=== PATIENT | female | born 1970 | race Caucasian/White ===

== ENCOUNTER → 2017-05-28 | Outpatient (CLI) | payer OTHER ==
[~2017-05-28] MED LIST: ALPR0.25 PO; BIRTH CONTOL; FURO20TA4 PO; HYDR-700 PO; LOW OGESTREL PO; METO-351 PO; NF-ESOM40C PO; NORG1TAB79 PO; POTA20TA15 PO; TORS20TA2 PO; TRAM50TA2 PO; bcp PO
--- NOTE | 2017-05-28 20:40 | Diagnostic Imaging Report ---
Transabdominal and transvaginal pelvic ultrasound. INDICATION: Frequent cycles. FINDINGS: The uterus is 7.3 x 4.7 x 4.3 cm. The endometrial stripe is 0.9 cm in thickness. The myometrium is fairly homogeneous with no focal mass. The right ovary is 2.5 x 1.7 x 1.7 cm. The left ovary is 1.7 x 2 x 1.4 cm. Arterial and venous waveforms over both ovaries are demonstrated. No focal mass or fluid collection seen. IMPRESSION: Unremarkable exam. Dictated by: Dictated on workstation # [id number]
--- NOTE | 2017-05-29 10:07 | Diagnostic Imaging Report ---
Bilateral screening mammogram 2D views with tomosynthesis. The current study was also evaluated with a Computer Aided Detection (CAD) system. INDICATION: Screening. No current complaints stated on the questionnaire. COMPARISON: 11/21/2014. FINDINGS: The breasts are composed of scattered fibroglandular densities. Occasional benign-appearing calcifications are seen. Allowing for technique and positional differences, no suspicious change is seen. IMPRESSION: No significant change. ACR BI-RADS Category 2: Benign findings. Result letter will be mailed to the patient. Note: At least 10% of breast cancer is not imaged by mammography. Dictated by: Dictated on workstation # [id number]
== END ==
LOC: RAD 10:49
PROVIDERS: ATTEND Nurse Practitioner
DX: Z12.31 Encounter for screening mammogram for malignant neoplasm of breast (principal); N92.0 Excessive and frequent menstruation with regular cycle
CPT/HCPCS: 76830; 76856; 77067

== ENCOUNTER → 2018-07-29 | Outpatient (CLI) | payer BC, OTHER ==
--- NOTE | 2018-07-29 21:26 | Diagnostic Imaging Report ---
INDICATION: Routine screening. Comparison is made with prior mammogram from 05/28/2017 and 11/21/2014. 2-D and 3-D bilateral screening mammography was performed with CAD. The current study was also evaluated with a Computer Aided Detection (CAD) system. FINDINGS: Scattered fibroglandular densities are identified bilaterally. There are benign calcifications in both breasts. No dominant mass or malignant-appearing microcalcifications are seen. The axillae are unremarkable. IMPRESSION: No mammographic features suspicious for malignancy are identified. ACR BI-RADS Category 2: Benign findings. Result letter will be mailed to the patient. Note: At least 10% of breast cancer is not imaged by mammography. Dictated by: Dictated on workstation # [id number]
== END ==
LOC: RAD 07:26
PROVIDERS: ATTEND Nurse Practitioner
DX: Z12.31 Encounter for screening mammogram for malignant neoplasm of breast (principal)
CPT/HCPCS: 77067

== ENCOUNTER → 2019-05-11 | Outpatient (CLI) | payer BC ==
[~2019-05-11] MED LIST changes: -TRAM50TA2 PO; +TRM50T PO
--- NOTE | 2019-05-11 14:28 | Diagnostic Imaging Report ---
INDICATION: Evaluate for splenomegaly. Spleen measures 11.9 x 3.7 x 4.7 cm. Spleen shows homogeneous echotexture. No mass is seen. IMPRESSION: Normal sized spleen. Dictated by: Dictated on workstation # [id number]
== END ==
LOC: RAD 13:54
PROVIDERS: ATTEND Nurse Practitioner Family
DX: R16.1 Splenomegaly, not elsewhere classified (principal)
CPT/HCPCS: 76705

== ENCOUNTER → 2019-10-04 | Outpatient (CLI) | payer BC | END | disposition home or self-care (01) | LOC: PREOP 05:36 | PROVIDERS: ATTEND Surgery | DX: Z01.818 Encounter for other preprocedural examination (principal) ==

== ENCOUNTER → 2019-11-04 | Outpatient (CLI) | payer BC ==
[~2019-11-04] VITALS: Ht 157 cm; Wt 114.0 kg
[~2019-11-04] MED LIST changes: +ALPR0.5T7 PO; +ASCO10006 PO; +BUTA1CAP41 PO; +CITA40TA11 PO; +CYAN-23 PO; +FLEC50TA PO; +L.AC1CAP6 PO; +LEVO5TAB12 PO; +METO50TA15 PO; +MV-M1TAB20 PO; +OMEP40CA27 PO; +SUMA100T2 PO
== END | disposition home or self-care (01) ==
LOC: PREOP 09:37
PROVIDERS: ATTEND Surgery
DX: Z01.818 Encounter for other preprocedural examination (principal)

== ENCOUNTER 2019-11-08 07:25 | Day surgery (SDC) | payer BC ==
[2019-11-08] VITALS (9 sets, daily range): BP systolic 94–123; BP diastolic 52–75
[~2019-11-08] VITALS: Ht 157 cm; Wt 114.0 kg
--- OUTSIDE RECORDS SUMMARY | 2019-11-08 07:31 | XMS REPORT ---
Author Author [facility] Organization [facility] Address [address] [address] Care Team Providers Care Production Operator Name Role Phone DEMIAN PARKER Unavailable VIRAJ RICHARD, CONOR Eagle Unavailable Unavailable TORIBIO DO, REYNA K Unavailable Unavailable VANBECELAERE, PAZ M CERTIFIED ORTHOPTIST Unavailable Unavailable MARIN LEW, WOOD Eagle Unavailable Unavailable CARYL ALFARO CUFF MAKER Unavailable Unavailable MARIZA RICHARD, LAURA Kitchen Unavailable Unavailable SYLVESTER ARROYO MD Unavailable Unavailable KATHERINE BROWNING CUFF MAKER Unavailable Unavailable ILYA DO, RANDY D Unavailable Unavailable Allergies Normalized Allergy Reported Date of Reaction(s) Care Provider Facility Allergy Type classification allergen Allergy Onset DA (21 Unclassified No Known Drug 04-03-2016 - no information REYNA ROONEY DO Not Available sources.) Allergies (48594) Medications No Information Problems Problem Normalized Date of Normalized Normalized Provider Fac ility Classification Problem(s) Problem Problem Problem Sta tus Onset/Resoluti Duration on Unclassified Body Mass Chronic Active SYLVESTER ARROYO , Not Available (1 source.) Index (34724) 50.0-59.9, adult Immunizations Encounter for Episodic Active LAURA DAWKINS Not Available and screening screening for , (91010) for infectious other disease (3 bacterial sources.) diseases Translations: [ SCREEN-BACTERI AL DIS NEC] Other Encounter for Episodic Active PAZ Not Avai lable screening for screening VANBECELAERE (54585) suspected mammogram for conditions malignant (not mental neoplasm of disorders or breast infectious Translations: disease) (6 [ OTH SCREEN sources.) MAMMO-MALIGN NEOPLASM OF OSBALDO] Esophageal Esophageal Chronic Active SYLVESTER DALALO , Not A vailable disorders (4 reflux (62663) sources.) Menstrual Excessive and Chronic Active OBIE QUICK Not Avai lable disorders (2 frequent (35308) sources.) menstruation with regular cycle Other Morbid obesity Chronic Active SYLVESTER ARROYO , No t Available nutritional; (10683) endocrine; and metabolic disorders (1 source.) Substance-rela Nicotine Chronic Active STANLEY Not Avai lable marielena disorders dependence, MD JULIET (74731) (2 sources.) cigarettes, uncomplicated Other Obesity, Chronic Active SYLVESTER DALALO , Not Avai lable nutritional; unspecified (03514) endocrine; and metabolic disorders (1 source.) Osteoarthritis Osteoarthrosis Chronic Active SYLVESTER ARROYO , Not Available (1 source.) , unspecified (04481) whether generalized or localized, site unspecified Anal and Other Episodic Active CONOR CALI Not Avai lable rectal specified , (90990) conditions (4 diseases of sources.) anus and rectum Other Pain in left Episodic Active WOOD Not Avail able connective lower leg LOUANN FUNES (98419) tissue disease (2 sources.) Other Splenomegaly, Episodic Active KATHERINE NAM [facility] gastrointestin not elsewhere [place] al disorders classified Hospital - (2 sources.) [place] (44469) Cardiac Tachycardia, Episodic Active CARYL ALFARO Not Available dysrhythmias unspecified (17998) (4 sources.) Translations: [ PALPITATIONS] Thyroid Thyrotoxicosis Chronic Active CARYL ALFARO No t Available disorders (9 with diffuse (91844) sources.) 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 Immunizations The data below is from unstructured sourcesNo immunization records. Results The data below is from unstructured sourcesNo known relevant diagnostic tests, laboratory data and/or discharge summary. Vital Signs The data below is from unstructured sources Vital Response Date/Time Pulse Rate (adult) 82 bpm (60 - 90) 04/03/2016 1:32pm Respiratory Rate 16 bpm (12 - 24) 04/03/2016 1:32pm O2 Sat by Pulse Oximetry 97 % (88 - 100) 04/03/2016 1:32pm Blood Pressure 127/89 mm Hg 04/03/2016 1:32pm Blood Pressure Mean 102 mm Hg 04/03/2016 1:32pm Pain Numeric Pain Scale 0-No Pain 04/03/2016 1:32pm Height (Feet) 5 feet 1:03pm Height (Inches) 2.00 inches 04/03/2016 1:03pm Height (Calculated Centimeters) 157. 460071 cm 04/03/2016 1:03pm Weight (Pounds) 258 pounds 04/03/2016 1:03pm Weight (Ounces) 6.0 oz 0 04/03/2016 1:03pm Weight (Calculated Grams) 549986.93 gm 04/03/2016 1:03pm Weight (Calculated Kilograms) 117.19 6930 kilograms 04/03/2016 1:03pm Calculated BMI 47.3 03/14 1:03pm Vital Response Date/Time Temperature (Fahrenheit) 97.1 degree s F (97.6 - 99.5) 04/19/2016 9:25am Temperature (Calculated Celsius) 36. 59373 degrees C (36.4 - 37.5) 04/19/2016 8:00am Temperature Source Tympanic 04/19/2016 9:25am Pulse Rate (adult) 78 bpm (60 - 90) 04/19/2016 9:25am Respiratory Rate 18 bpm (12 - 24) 04/19/2016 9:25am O2 Sat by Pulse Oximetry 96 % (88 - 100) 04/19/2016 9:25am Blood Pressure 140/72 mm Hg 04/19/2016 9:25am Blood Pressure Mean 94 mm Hg 04/19/2016 8:00am Pain Numeric Pain Scale 6 8:58am Height (Feet) 5 feet 01/2016 8:05am Height (Inches) 2.00 inches 04/18/2016 8:05am Height (Calculated Centimeters) 157. 160932 cm 04/18/2016 8:05am Weight (Pounds) 258 pounds 04/18/2016 8:05am Weight (Ounces) 6.0 oz 1 8:05am Weight (Calculated Grams) 134785.93 gm 04/18/2016 8:05am Weight (Calculated Kilograms) 117.19 6930 kilograms 04/18/2016 8:05am Calculated BMI 47.3 01/2016 8:05am Vital Response Date/Time Height (Feet) 5 feet 08/2015 3:54pm Height (Inches) 2.00 inches 12/13/2015 3:54pm Height (Calculated Centimeters) 157. 955329 cm 12/13/2015 3:54pm Weight (Pounds) 230 pounds 12/13/2015 3:54pm Weight (Ounces) 0.0 oz 0 12/13/2015 3:54pm Weight (Calculated Grams) 410749.246 gm 12/13/2015 3:54pm Weight (Calculated Kilograms) 104.32 6246 kilograms 12/13/2015 3:54pm Calculated BMI 38.27 08/2015 3:54pm Vital Response Date/Time Temperature (Fahrenheit) 99.1 degree s F (97.6 - 99.5) 07/18/2015 8:00pm Temperature (Calculated Celsius) 37. 23869 degrees C (36.4 - 37.5) 07/18/2015 8:00pm Temperature Source Temporal 07/18/2015 8:00pm Pulse Rate (adult) 95 bpm (60 - 90) 07/18/2015 11:07pm Respiratory Rate 20 bpm (12 - 24) 07/18/2015 11:07pm O2 Sat by Pulse Oximetry 97 % (88 - 100) 07/18/2015 11:07pm Blood Pressure 121/95 mm Hg 07/18/2015 11:07pm Blood Pressure Mean 97 mm Hg 07/18/2015 8:00pm Pain Pain Intensity 7 2015 11:07pm Height (Feet) 5 feet 12/2015 8:00pm Height (Inches) 2 inches 07/18/2015 8:00pm Height (Calculated Centimeters) 157. 474479 cm 07/18/2015 8:00pm Weight (Pounds) 214 pounds 07/18/2015 8:00pm Weight (Calculated Kilograms) 97.068 768 kilograms 07/18/2015 8:00pm Calculated BMI 39.14 12/2015 8:00pm Vital Response Date/Time Temperature (Fahrenheit) 98.2 degree s F (97.6 - 99.5) Temperature (Calculated Celsius) 36. 03175 degrees C (36.4 - 37.5) Temperature Source Temporal Pulse Rate (adult) 102 bpm (60 - 90) Respiratory Rate 20 bpm (12 - 24) O2 Sat by Pulse Oximetry 95 % (88 - 100) Blood Pressure 143/101 mm Hg Pain Pain Intensity 5 Height (Feet) 5 feet Height (Inches) 2 inches Height (Calculated Centimeters) 157. 461091 cm Weight (Pounds) 220 pounds Weight (Calculated Kilograms) 99.790 322 kilograms Calculated BMI 40.23 Vital Response Date/Time Temperature (Fahrenheit) 98.2 degree s F (97.6 - 99.5) Temperature (Calculated Celsius) 36. 40772 degrees C (36.4 - 37.5) Temperature Source Temporal Pulse Rate (adult) 102 bpm (60 - 90) Respiratory Rate 20 bpm (12 - 24) O2 Sat by Pulse Oximetry 95 % (88 - 100) Blood Pressure 143/101 mm Hg Pain Pain Intensity 5 Height (Feet) 5 feet Height (Inches) 2 inches Height (Calculated Centimeters) 157. 065666 cm Weight (Pounds) 220 pounds Weight (Calculated Kilograms) 99.790 322 kilograms Calculated BMI 40.23 Interventions No Information Plan of Treatment The data below is from unstructured sources Discharge Date 04/03/16 4:05pm Prescriptions See Medication Section Discharge Date 04/19/16 9:25am Instructions/Education Provided Adry German (DC) Prescriptions See Medication Section Discharge Date 12/13/15 4:06pm Prescriptions See Medication Section Discharge Date 07/18/15 11:07pm Disposition 01 HOME, SELF-CARE Condition at Discharge Improved Instructions/Education Provided Ches t Pain (ED) Pleurisy (ED) Prescriptions See Medication Section Referrals NIKOLAI DOZIER MD FACP [facility]TT HARGROVE MD - DEMIAN PARKER DO - Primary Care Physician DEMIAN PARKER DO - Primary Care Physician Additional Instructions/Education Al l discharge instructions reviewed with patient and/or family. Voiced understanding. Take her Nexium twice daily for the next week and then daily after that. You may take ibuprofen 2 tablets of the zcle-kzq-hvhefeu version 3 or 4 times daily for the next several days as needed. Return for worse pain, breathing problems, sweating, nausea, vomiting or other concerns as needed. Follow-up with the vacuum spindle sander for recheck and further evaluation. Follow-up with your doctor this week for recheck. No plan of care. Goals No Information Social History No Information Functional Status The data below is from unstructured sources Query Response Date Dusty rded Patient Orientation Person Place Time Situation Eyes Open April 19, 2016 9:27am Comprehension Ability Understands Co ncepts April 18, 2016 9:00pm No functional status results. Mental Status No Information Encounters Encounter Normalized Encounter Encounter Diagnosis Care Provi akin Organization Date Type 05-28-2017 Patient encounter no information no name (no phone) no organization name (no phone) 11-08-2015 Patient encounter no information no name (no phone) no organization name (no phone) 09-23-2012 Patient encounter no information no name (no phone) no organization name - (no phone) 09-24-2012 09-21-2012 Patient encounter no information no name (no phone) no organization name (no phone) 10-04-2019 Patient encounter no information RANDY CARABALLO DO (no [facility] [place] procedure phone) [facility] (no phone) 05-11-2019 Patient encounter no information no name (no phone) no organization name procedure (no phone) 07-29-2018 Patient encounter no information no name (no phone) no organization name procedure (no phone) 04-18-2016 Patient encounter no information no name (no phone) no organization name - procedure (no phone) 04-19-2016 01-10-2016 Patient encounter no information no name (no phone) no organization name procedure (no phone) 12-14-2015 Patient encounter no information no name (no phone) no organization name procedure (no phone) 10-29-2015 Patient encounter no information no name (no phone) no organization name procedure (no phone) 11-21-2014 Patient encounter no information no name (no phone) no organization name procedure (no phone) 08-26-2012 Patient encounter no information no name (no phone) no organization name procedure (no phone) 10-05-2019 no information Encounter for other no name (no phon e) no organization name preprocedural (no phone) examination no information Encounter for no name (no phone) no organiza tion name preprocedural (no phone) laboratory examination no information Other specified no name (no phone) no organiz ation name pre-operative (no phone) examination no information Pre-procedural no name (no phone) no organiza tion name laboratory examination (no phone) no information Encounter for other no name (no phone) no org anization name preprocedural (no phone) examination Medical Equipment No Information Payers No Information Advance Directives Directive Response Recor ded Date/Time Advance Directives No 1:12pm Health Care Power of Early Morning Babysitter No 04/03/16 1:12pm Organ Donor No 04/03/16 1:12pm Resuscitation Status Full Code 04/03/16 1:12pm Directive Response Recor ded Date/Time Advance Directives No 12:10pm Health Care Power of Early Morning Babysitter No 04/18/16 12:10pm Organ Donor No 04/18/16 12:10pm Resuscitation Status Full Code 04/18/16 12:10pm Directive Response Recor ded Date/Time Advance Directives No 3:54pm Health Care Power of Early Morning Babysitter No 12/13/15 3:54pm Organ Donor No 12/13/15 3:54pm Resuscitation Status Full Code 12/13/15 3:54pm Directive Response Recor ded Date/Time Advance Directives No 8:00pm Health Care Power of Early Morning Babysitter No 07/18/15 8:00pm Organ Donor No 07/18/15 8:00pm Resuscitation Status Full Code 07/18/15 8:00pm Directive Response Recor ded Date/Time Advance Directives No 6:41pm Health Care Power of Early Morning Babysitter No 11/14/14 6:41pm Organ Donor No 11/14/14 6:41pm Resuscitation Status Full Code 11/14/14 6:41pm Discharge Instructions No hospital discharge instructions.No hospital discharge instructions.No hospital discharge instructions.No hospital discharge instructions.No hospital discharge instructions. Additional Source Comments This clinical document has been generated using Rep software that has been certified by the Office of the National Coordinator for Health Information Technology (ONC 15.99.04.3023.Diam.[id number]) and the National Committee for Lift Manager (NCQA, as an eMeasure certified technology). FOR RECORDS PERTAINING TO PATIENTS WHO ARE OR HAVE BEEN ENROLLED IN A CHEMICAL D EPENDENCY/SUBSTANCE ABUSE PROGRAM, SOME INFORMATION MAY BE OMITTED. This clinica l summary was aggregated from multiple sources. Caution should be exercised in using it in the provision of clinical care. This summary normalizes information from multiple sources, and as a consequence, information in this document may ma terially change the coding, format and clinical context of patient data. In barbara tion, data may be omitted in some cases. CLINICAL DECISIONS SHOULD BE BASED ON T HE PRIMARY CLINICAL RECORDS. [facility] [employer] [facility]. provides no warranty or guara ntee of the accuracy or completeness of information in this document.The followi ng information is based on time limited clinical information
--- OUTSIDE RECORDS SUMMARY | 2019-11-08 07:32 | XMS REPORT | Continuity of Care Document ---
Author Organization Unknown Address Unknown Phone Unavailable Allergies Active Description Code Type Severity Reaction Onset Reported/Identified Relationship to Patient Clinical Status Yes No Known Drug Allergies [id number] Drug Allergy Unknown N/A 11/04/2019 Medications There is no data. Problems Date Dx Coded Attending Type Code Diagnosis Diagnosed By 04/17/[address] PAIN NEC 04/24/[address] PAIN NOS 04/24/2011 Ot 794.30 ABN CARDIOVASC STUDY NOS 07/16/[address] PAIN NOS 09/24/2012 Ot 278.01 MOR BID OBESITY 09/24/2012 Ot 530.81 ESO PHAGEAL REFLUX 09/24/2012 Ot 715.90 OST EOARTHROS NOS- UNSPEC 09/24/2012 Ot V85.43 BOD Y MASS INDEX 50.0-59.9, ADULT 11/14/2014 TORIBIO DOABHIJEETA K Ot 530.81 ESOPHAGEAL REFLUX 11/14/2014 TORIBIO ABHIJEET MOREIRAA K Ot 786.50 CHEST PAIN NOS 11/22/2014 PAZ LY REVERSE LOGISTICS ANALYST Ot V76.12 12/14/2014 PAZ LY REVERSE LOGISTICS ANALYST Ot V76.12 07/18/2015 STANLEY CHUNG MD Ot F17.210 NICOTINE DEPENDENCE, CIGARETTES, UNCOMPL 07/18/2015 JULIET RICHARD, STANLEY Hough Ot R07.89 OTHER CHEST PAIN 10/30/2015 CARYL ALFARO DISTRICT MANAGER Ot E05.90 THYROTOXICOSIS, UNSP WITHOUT THYROTOXIC 10/30/2015 CARYL ALFARO DISTRICT MANAGER Ot R00.0 TACHYCARDIA, UNSPECIFIED 10/30/2015 CARYL ALFARO DISTRICT MANAGER Ot R00.2 PALPITATIONS 11/08/[address] PAIN NOS 11/08/[address] PAIN NOS 11/08/2015 Ot 530.81 ESO PHAGEAL REFLUX 11/08/2015 Ot 278.00 OBE SITY, NOS 11/08/2015 Ot V72.63 PRE -PROCEDURAL LABORATORY EXAMINATION 11/08/2015 Ot V72.83 EXA M PRE- OPERATIVE NEC 11/08/2015 Ot V74.8 SCRE EN-BACTERIAL DIS NEC 11/08/2015 PAZ LY REVERSE LOGISTICS ANALYST Ot V76.12 OTH SCREEN MAMMO-MALIGN NEOPLASM OF OSBALDO 11/08/2015 CARYL ALFARO APRN Ot E05.90 THYROTOXICOSIS, UNSP WITHOUT THYROTOXIC 11/08/2015 CARYL ALFARO DISTRICT MANAGER Ot R00.0 TACHYCARDIA, UNSPECIFIED 11/08/2015 CARYL ALFARO DISTRICT MANAGER Ot R00.2 PALPITATIONS 11/09/2015 MARIZA RICHARD, LAURA P Ot E04 .1 NONTOXIC SINGLE THYROID NODULE 11/09/2015 LAURA DAWKINS MD Ot E05.00 THYROTOXICOSIS W DIFFUSE GOITER W/O THYR 11/09/2015 LAURA DAWKINS MD Ot E04 .1 NONTOXIC SINGLE THYROID NODULE 11/09/2015 LAURA DAWKINS MD Ot E05.00 THYROTOXICOSIS W DIFFUSE GOITER W/O THYR 11/14/2015 CARYL ALFARO DISTRICT MANAGER Ot E05.90 THYROTOXICOSIS, UNSP WITHOUT THYROTOXIC 11/14/2015 CARYL ALFARO APRN Ot R00.0 TACHYCARDIA, UNSPECIFIED 11/14/2015 CARYL ALFARO DISTRICT MANAGER Ot R00.2 PALPITATIONS 11/20/2015 LAURA DAWKINS MD Ot E04 .1 NONTOXIC SINGLE THYROID NODULE 11/20/2015 MARIZA RICHARD, LAURA P Ot E05.00 THYROTOXICOSIS W DIFFUSE GOITER W/O THYR 12/13/2015 CONOR CALI MD Ot K62.89 OTHER SPECIFIED DISEASES OF ANUS AND REC 12/13/2015 CONOR CALI MD Ot Z01.818 ENCOUNTER FOR OTHER PREPROCEDURAL EXAMIN 12/14/2015 CONOR CALI MD Ot K62.89 OTHER SPECIFIED DISEASES OF ANUS AND REC 12/14/2015 CONOR CALI MD Ot Z01.818 ENCOUNTER FOR OTHER PREPROCEDURAL EXAMIN 12/17/2015 CONOR CALI MD Ot K62.89 OTHER SPECIFIED DISEASES OF ANUS AND REC 12/17/2015 CONOR CALI MD Ot K64.9 UNSPECIFIED HEMORRHOIDS 12/18/2015 VIRAJ RICHARD, CONOR Eagle Ot K62.89 OTHER SPECIFIED DISEASES OF ANUS AND REC 12/18/2015 VIRAJ RICHARD, CONOR Eagle Ot K64.9 UNSPECIFIED HEMORRHOIDS 12/18/2015 VIRAJ RICHARD, CONOR Eagle Ot K62.89 OTHER SPECIFIED DISEASES OF ANUS AND REC 12/18/2015 VIRAJ RICHARD, CONOR Eagle Ot K64.9 UNSPECIFIED HEMORRHOIDS 12/18/2015 VIRAJ RICHARD, CONOR Eagle Ot K62.89 OTHER SPECIFIED DISEASES OF ANUS AND REC 12/18/2015 CONOR CALI MD Ot K64.9 UNSPECIFIED HEMORRHOIDS 12/20/2015 VIRAJ RICHARD, CONOR Eagle Ot K62.89 OTHER SPECIFIED DISEASES OF ANUS AND REC 12/20/2015 CONOR CALI MD Ot K64.9 UNSPECIFIED HEMORRHOIDS 12/23/2015 CONOR CALI MD Ot K62.89 OTHER SPECIFIED DISEASES OF ANUS AND REC 12/23/2015 CONOR CALI MD Ot K64.9 UNSPECIFIED HEMORRHOIDS 12/31/2015 VIRAJ RICHARD, CONOR Eagle Ot K62.89 OTHER SPECIFIED DISEASES OF ANUS AND REC 12/31/2015 CONOR CALI MD Ot K64.9 UNSPECIFIED HEMORRHOIDS 01/11/2016 Ot M79.662 PA IN IN LEFT LOWER LEG 01/16/2016 Ot M79.662 PA IN IN LEFT LOWER LEG 01/23/2016 Ot M79.662 PA IN IN LEFT LOWER LEG 04/03/[address] PAIN NOS 04/03/2016 LAURA DAWKINS MD Ot E04 .1 NONTOXIC SINGLE THYROID NODULE 04/03/2016 LAURA DAWKINS MD Ot Z01.812 ENCOUNTER FOR PREPROCEDURAL LABORATORY E 04/03/2016 LAURA DAWKINS MD Ot Z11 .2 ENCOUNTER FOR SCREENING FOR OTHER BACTER 04/19/2016 LAURA DAWKINS MD Ot E04 .1 NONTOXIC SINGLE THYROID NODULE 04/22/2016 LAURA DAWKINS MD Ot E04 .1 NONTOXIC SINGLE THYROID NODULE 05/22/2017 Ot 530.81 ESO PHAGEAL REFLUX 05/22/2017 Ot 278.00 OBE SITY, NOS 05/22/2017 Ot V72.63 PRE -PROCEDURAL LABORATORY EXAMINATION 05/22/2017 Ot V72.83 EXA M PRE- OPERATIVE NEC 05/22/2017 Ot V74.8 SCRE EN-BACTERIAL DIS NEC 05/22/2017 TWANDLRAFAPAZ BRITTANIE Ot V76.12 OTH SCREEN MAMMO-MALIGN NEOPLASM OF [place]BALDO 05/22/2017 SOCO ALFAROEssie Helton APRN Ot E05.90 THYROTOXICOSIS, UNSP WITHOUT THYROTOXIC 05/22/2017 MICHELL ALFAROTYLER Helton APRN Ot R00.0 TACHYCARDIA, UNSPECIFIED 05/22/2017 CARYL ALFARO DISTRICT MANAGER Ot R00.2 PALPITATIONS 05/22/2017 MARIZA RICHARD, LAURA Kitchen Ot E04 .1 NONTOXIC SINGLE THYROID NODULE 05/22/2017 MARIZA RICHARD, LAURA Kitchen Ot E05.00 THYROTOXICOSIS W DIFFUSE GOITER W/O THYR 05/22/2017 VIRAJ RICHARD, CONOR Eagle Ot K62.89 OTHER SPECIFIED DISEASES OF ANUS AND REC 05/22/2017 VIRAJ RICHARD, CONOR Eagle Ot K64.9 UNSPECIFIED HEMORRHOIDS 05/22/2017 Ot M79.662 PA IN IN LEFT LOWER LEG 06/09/2017 OBIE TAN REVERSE LOGISTICS ANALYST Ot N92.0 EXCESSIVE AND FREQUENT MENSTRUATION WITH 06/09/2017 OBIE TAN REVERSE LOGISTICS ANALYST Ot Z12.3 1 ENCNTR SCREEN MAMMOGRAM FOR MALIGNANT NE 07/27/2018 PAZ LY Ot V76.12 OTH SCREEN MAMMO-MALIGN NEOPLASM OF [place]BALDO 07/27/2018 CARYL ALFARO Sunitha QUINTANILLA Ot E05.90 THYROTOXICOSIS, UNSP WITHOUT THYROTOXIC 07/27/2018 DOMINIC CARYL N DISTRICT MANAGER Ot R00.0 TACHYCARDIA, UNSPECIFIED 07/27/2018 CARYL ALFARO DISTRICT MANAGER Ot R00.2 PALPITATIONS 07/27/2018 MARIZA RICHARD, LAURA Kitchen Ot E04 .1 NONTOXIC SINGLE THYROID NODULE 07/27/2018 MARIZA RICHARD, LAURA Kitchen Ot E05.00 THYROTOXICOSIS W DIFFUSE GOITER W/O THYR 07/27/2018 VIRAJ RICHARD, CONOR Eagle Ot K62.89 OTHER SPECIFIED DISEASES OF ANUS AND REC 07/27/2018 VIRAJ RICHARD, CONOR Eagle Ot K64.9 UNSPECIFIED HEMORRHOIDS 07/27/2018 Ot M79.662 PA IN IN LEFT LOWER LEG 07/27/2018 OBIE TAN REVERSE LOGISTICS ANALYST Ot N92.0 EXCESSIVE AND FREQUENT MENSTRUATION WITH 07/27/2018 OBIE TAN REVERSE LOGISTICS ANALYST Ot Z12.3 1 ENCNTR SCREEN MAMMOGRAM FOR MALIGNANT NE 07/30/2018 OBIE TANP Ot Z12.3 1 ENCNTR SCREEN MAMMOGRAM FOR MALIGNANT NE 08/11/2018 OBIE TAN REVERSE LOGISTICS ANALYST Ot Z12.3 1 ENCNTR SCREEN MAMMOGRAM FOR MALIGNANT NE 05/17/2019 KATHERINE BROWNING DISTRICT MANAGER Ot R16 .1 SPLENOMEGALY, NOT ELSEWHERE CLASSIFIED 06/08/2019 KATHERINE BROWNING DISTRICT MANAGER Ot R16 .1 SPLENOMEGALY, NOT ELSEWHERE CLASSIFIED 10/05/2019 RANDY CARABALLO DO Ot Z01.818 ENCOUNTER FOR OTHER PREPROCEDURAL EXAMIN Procedures There is no data. Results Test Result Range Complete blood count (CBC) with automate d white blood cell (WBC) differential - 04/03/16 14:00 Blood leukocytes automated count (number/volume) 7.4 10*3/uL 4.3-11.0 Blood erythrocytes automated count (number/volume) 4.63 10*6/uL 4.35-5.85 Venous blood hemoglobin measurement (mass/volume) 13.5 g/dL 11.5-16.0 Blood hematocrit (volume fraction) 40 % 35-52 Automated erythrocyte mean corpuscular volume 86 [ foz_us] 80-99 Automated erythrocyte mean corpuscular h emoglobin (mass per erythrocyte) 29 pg 25-34 Automated erythrocyte mean corpuscular h emoglobin concentration measurement (mass/volume) 34 g/dL 32-36 Automated erythrocyte distribution width ratio 13. 4 % 10.0- 14.5 Automated blood platelet count (count/volume) 369 10*3/uL 130-400 Automated blood platelet mean volume measurement 11.3 [foz_us] 7.4-10.4 Automated blood neutrophils/100 leukocytes 50 % 42-75 Automated blood lymphocytes/100 leukocytes 39 % 12-44 Blood monocytes/100 leukocytes 9 % 0-12 Automated blood eosinophils/100 leukocytes 2 % 0-10 Automated blood basophils/100 leukocytes 1 % 0-10 Blood neutrophils automated count (number/volume) 3.7 10*3 1.8-7.8 Blood lymphocytes automated count (number/volume) 2.8 10*3 1.0-4.0 Blood monocytes automated count (number/volume) 0. 7 10*3 0.0-1.0 Automated eosinophil count 0.1 10*3/uL 0 .0-0.3 Automated blood basophil count (count/volume) 0.0 10*3/uL 0.0-0.1 Whole blood basic metabolic panel - 03/14 08/28 14:00 Serum or plasma sodium measurement (moles/volume) 135 mmol/L 135-145 Serum or plasma potassium measurement (moles/volume) 4.4 mmol/L 3.6-5.0 Serum or plasma chloride measurement (moles/volume) 109 mmol/L 98-107 Carbon dioxide 18 mmol/L 21-32 Serum or plasma anion gap determination (moles/volume) 8 mmol/L 5-14 Serum or plasma urea nitrogen measurement (mass/volume ) 11 mg/dL 7-18 Serum or plasma creatinine measurement (mass/volume) 0.68 mg/dL 0.60-1.30 Serum or plasma urea nitrogen/creatinine mass ratio 16 NRG Serum or plasma creatinine measurement w ith calculation of estimated glomerular filtration rate > NRG Serum or plasma glucose measurement (mass/volume) 68 mg/dL 70-105 Serum or plasma calcium measurement (mass/volume) 8.7 mg/dL 8.5-10.1 Methicillin resistant Staphylococcus aur eus (MRSA) screening culture - 04/03/16 14:00 Methicillin resistant Staphylococcus aureus (MRSA) scr eening culture NEG NRG Urine beta human chorionic gonadotropin (hCG) measurement - 04/18/16 07:35 Urine beta human chorionic gonadotropin (hCG) measurem ent NEGATIVE NEGATIVE Serum or plasma calcium measurement (mas s/volume) - 04/18/16 15:15 Serum or plasma calcium measurement (mass/volume) 8.5 mg/dL 8.5-10.1 Serum or plasma calcium measurement (mas s/volume) - 04/19/16 06:18 Serum or plasma calcium measurement (mass/volume) 8.9 mg/dL 8.5-10.1 Encounters ACCT No. Visit Date/Time Discharge Status Pt. Type Provider Facility Loc./Unit Complaint [id number] 05/19/2019 11:40:00 05/19/2019 23:59: 59 [facility] S [id number] 10/11/2019 09:10:00 23:59:59 CLS Preadmit CARABALLO RANDY [facility] ENDO BLOOD IN STOOL [id number] 10/04/2019 05:36:00 23:59:59 CLS Outpatient ILYA MOREIRA RANDY [place] [facility] PREOP COLONOSCOPY [id number] 05/11/2019 13:54:00 23:59:59 CLS Outpatient NAM KATHERINESunitha Reich APRN [facility] RAD R/U SPLEENOMEGALY [id number] 07/29/2018 07:26:00 23:59:59 CLS Outpatient OBIE TAN [facility] RAD SCREENING [id number] 05/28/2017 10:49:00 23:59:59 CLS Outpatient OBIE TAN [facility] RAD N92.0, Z12.31 [id number] 04/18/2016 07:34:00 09:25:00 DIS Outpatient LAURA DAWKINS MD [facility] RIGHT THYROID NODULE/MU LTINODULAR GOITER [id number] 04/03/2016 13:00:00 16:05:00 DIS Outpatient LAURA DAWKINS MD [facility] PREOP RIGHT THYROID NODULE, MULTINODULAR GOITER [id number] 12/14/2015 14:26:00 23:59:59 [facility] [id number] 12/13/2015 15:48:00 16:06:00 DIS Outpatient CONOR CALI MD [facility] PREOP RECTAL PAIN [id number] 11/08/2015 10:47:00 23:59:59 CLS Outpatient LAURA DAWKINS MD [facility] CARD HYPERTHYROIDISM, AND R THYROID NODULE [id number] 10/29/2015 08:08:00 23:59:59 CLS Outpatient CARYL ALFARO APRN [facility] RAD HYPERTHYROIDISM,PALPITATIONS,TACH [id number] 07/18/2015 19:59:00 016 23:07:00 DIS Emergency JULIET RICHARD, STANLEY Hough [facility] ER CHEST PAIN [id number] 11/21/2014 08:39:00 015 23:59:59 CLS Outpatient PAZ LY [facility] RAD SCREENING [id number] 11/14/2014 18:31:00 015 20:51:00 DIS Emergency TORIBIO DO, REYNA K [facility] ER CHEST TIGHTNESS,ELEVATE D BLOOD PRESSURE [id number] 11/04/2019 10:02:00 Document Registration [id number] 11/04/2019 10:02:00 Document Registration [id number] 01/10/2016 15:01:00 Document Registration [id number] 09/23/2012 06:57:00 Document Registration [id number] 09/21/2012 14:51:00 Document Registration [id number] 08/26/2012 08:42:00 Document Registration [id number] 07/17/2011 00:00:00 Document Registration [id number] 04/23/2011 13:29:00 Document Registration [id number] 04/23/2011 06:24:00 Document Registration [id number] 04/18/2011 07:59:00 Document Registration [id number] 04/17/2011 11:18:00 Document Registration
[2019-11-08] MEDS ORDERED: LACTATED RINGERS 1,000 ML IV ONE (07:42)
[2019-11-08] MEDS ORDERED: LACTATED RINGERS 1,000 ML IV PRN (07:45)
[2019-11-08] MEDS ORDERED: MIDAZOLAM 2 MG/2 ML (VERSED) VIAL ONE (09:06)
[2019-11-08] MEDS ORDERED: PROPOFOL INJECTION 50 ML IV ONE ×2 (09:06→09:39)
--- NOTE | 2019-11-08 09:58 | Progress Note-Post Operative ---
Post-Operative Progess Note Surgeon (s)/Agricultural Service Worker (s) Surgeon RANDY CARABALLO DO Agricultural Service Worker: na Pre-Operative Diagnosis melena, anal fissure Post-Operative Diagnosis sigmoid and rectal polyp, post anal fissure Procedure & Operative Findings Date of Procedure 11/08/19 Procedure Performed/Findings colonoscopy c hot bx polypectomy x 2 Anesthesia Type per piece dyer Estimated Blood Loss Estimated blood loss (mL): none Specimens/Packing Specimens Removed colon polyp x 2 RANDY CARABALLO DO Nov 08, 2019 09:58
--- NOTE | 2019-11-08 10:01 | Discharge Inst-Simple/Standard ---
Discharge Inst-Standard Discharge Medications New, Converted or Re-Newed RX: RX on Chart Patient Instructions/Follow Up Plan of Care/Instructions/FU: 2 weeks Soni Activity as Tolerated: Yes Discharge Diet: Regular Diet (high fiber) RANDY CARABALLO DO Nov 08, 2019 10:01
--- NOTE | 2019-11-08 10:09 | Anesthesia-General Post-Op ---
MAC Patient Condition Mental Status/LOC: Same as Preop Cardiovascular: Satisfactory Nausea/Vomiting: Absent Respiratory: Satisfactory Pain: Controlled Complications: Absent Post Op Complications Complications None Follow Up Care/Instructions Patient Instructions None needed. Anesthesiology Discharge Order Discharge Order Patient is doing well, no complaints, stable vital signs, no apparent adverse anesthesia problems. No complications reported per nursing. MARIA DOLORES SHEEHAN CRNA Nov 08, 2019 10:09
--- NOTE | 2019-11-08 11:55 | OPERATIVE REPORT ---
DATE OF SERVICE: 11/08/2019 PREOPERATIVE DIAGNOSES: Melena and anal fissure. POSTOPERATIVE DIAGNOSES: Sigmoid and rectal polyp and posterior anal fissure. PROCEDURE: Colonoscopy with hot biopsy polypectomy x2. SURGEON: Randy Shafer DO. ANESTHESIA: Per JACK SPOOLER TENDER. ESTIMATED BLOOD LOSS: None. COMPLICATIONS: None. INDICATIONS FOR PROCEDURE: The patient is a 49-year-old female with blood in her stool and posterior anal fissure. She understands risks and benefits of procedure and wished to proceed with procedure. Consent was signed in the chart. DESCRIPTION OF PROCEDURE: The patient was taken to the endoscopy suite and placed in a left lateral recumbent position. Timeout was performed. Digital rectal exam was performed, visibly also noting a posterior anal fissure. No active bleeding. No polyps, masses or other ulcerations. Scope was inserted in the rectum and advanced all the way to cecum with minimal difficulty. Prep was adequate. Scope was then slowly retracted back. There were no polyps, masses or ulcerations in the cecum, ascending, transverse and descending colon and in the sigmoid colon, a small polyp was present, which hot biopsy polypectomy was performed. Scope was then continuously retracted back into the rectum where there was another small polyp, which hot biopsy polypectomy was performed. Scope was then slowly retracted back into the rectum and retroflexed noting there is some slight internal hemorrhoidal disease. No other pathology. Scope was returned to its normal position, slowly withdrawn until completely removed. The patient tolerated the procedure well without any complications. She will need a repeat colonoscopy in 5 years. RECOMMENDATIONS: The patient will follow up in the office in 2 weeks to discuss pathology and see if the fissure has healed. We would recommend a high fiber diet. We will consider using diltiazem cream as well in keeping his stool soft. Job ID: [id number] DocumentID: [id number] Dictated Date: 11/08/2019 10:04:43 Strategy Analyst Date: 11/08/2019 11:54:13 Dictated By: RANDY SHAFER DO
== END 2019-11-08 10:45 | disposition home or self-care (01) ==
LOC: ENDO 07:25
PROVIDERS: ATTEND Surgery
DX: D12.5 Benign neoplasm of sigmoid colon (principal); K62.1 Rectal polyp; K92.1 Melena; K60.2 Anal fissure, unspecified; K64.8 Other hemorrhoids; K21.9 Gastro-esophageal reflux disease without esophagitis; I10 Essential (primary) hypertension; F32.9 Major depressive disorder, single episode, unspecified; F17.210 Nicotine dependence, cigarettes, uncomplicated; Z79.899 Other long term (current) drug therapy; Z83.6 Family history of other diseases of the respiratory system
CPT/HCPCS: 84703

== ENCOUNTER 2019-11-28 09:45 | Outpatient (RCR) | payer BC ==
[~2019-11-28] VITALS: Ht 157.5 cm; Wt 115.9 kg
== END 2019-11-28 15:11 | disposition home or self-care (01) ==
LOC: PREOP 09:45
PROVIDERS: ATTEND Surgery
DX: Z01.818 Encounter for other preprocedural examination (principal); Z11.59 Encounter for screening for other viral diseases
CPT/HCPCS: 87635

== ENCOUNTER 2019-12-02 08:28 | Day surgery (SDC) | payer BC ==
[2019-12-02] VITALS (14 sets, daily range): BP systolic 106–138; BP diastolic 55–99
[~2019-12-02] VITALS: Ht 62 cm; Wt 115.9 kg
[2019-12-02] MEDS ORDERED: LACTATED RINGERS 1,000 ML IV PRN (08:40)
[2019-12-02] MEDS ORDERED: MIDAZOLAM 2 MG/2 ML (VERSED) VIAL IV ONE (09:15)
[2019-12-02] MEDS ORDERED: BUP/EPI 0.5% 1:200,000 (SENSORCAINE) 30 ML VIAL ONE (10:03)
[2019-12-02] MEDS ORDERED: SUCCINYLCHOLINE INJ 100 MG/5 ML SYR ONE (10:16)
[2019-12-02] MEDS ORDERED: ONDANSETRON 4 MG/2 ML (SDV) Z0FRAN ONE (10:16)
[2019-12-02] MEDS ORDERED: proPOfol 200 MG/20 ML (DIPRIVAN) VIAL IV ONE (10:16)
[2019-12-02] MEDS ORDERED: ROCURONIUM 10 MG/ML 5 ML SYRINGE IV ONE (10:16)
[2019-12-02] MEDS ORDERED: LIDOCAINE PF 2% 5 ML (XYLOCAINE) VIAL ONE (10:16)
[2019-12-02] MEDS ORDERED: fentaNYL INJECTION 100 MCG/2 ML AMP ONE (10:17)
[2019-12-02] MEDS ORDERED: MIDAZOLAM 2 MG/2 ML (VERSED) VIAL ONE (10:17)
--- NOTE | 2019-12-02 10:44 | Progress Note-Pre Operative ---
Pre-Operative Progress Note H&P Reviewed The H&P was reviewed, patient examined and no changes noted. Date Seen by Provider: December 02, 2019 Time Seen by Provider: 10:43 Date H&P Reviewed: December 02, 2019 Time H&P Reviewed: 10:43 Pre-Operative Diagnosis: anal fissure, rectal pain RANDY CARABALLO DO December 02, 2019 10:44
[2019-12-02] MEDS ORDERED: GLYCOPYRROLATE 0.2 MG/ML (ROBINUL) 2 ML VIAL ONE (12:08)
[2019-12-02] MEDS ORDERED: NEOSTIGMINE 3 MG/3 ML VIAL ONE (12:08)
[2019-12-02] MEDS ORDERED: SEVOFLURANE (ULTANE) 15 ML INHAL SOLN ONE (12:09)
--- NOTE | 2019-12-02 12:26 | Anesthesia-General Post-Op ---
General Patient Condition Mental Status/LOC: Same as Preop Cardiovascular: Satisfactory Nausea/Vomiting: Absent Respiratory: Satisfactory Pain: Controlled Complications: Absent Post Op Complications Complications None Follow Up Care/Instructions Patient Instructions None needed. Anesthesia/Patient Condition Patient Condition Patient is doing well, no complaints, stable vital signs, no apparent adverse anesthesia problems. No complications reported per nursing. LONA COLE CRNA December 02, 2019 12:26
[2019-12-02] MEDS ORDERED: morphine INJ 10 MG/ML 1ML (SYR OR VIAL) IVP ONE (12:30)
[2019-12-02] MEDS ORDERED: morphine INJ 10 MG/ML 1ML (SYR OR VIAL) ONE (12:30)
[2019-12-02] MEDS ORDERED: ONDANSETRON 4 MG/2 ML (SDV) Z0FRAN IVP PRN (12:30)
--- NOTE | 2019-12-02 13:24 | Progress Note-Post Operative ---
Post-Operative Progess Note Surgeon (s)/Dog Track Kennel Manager (s) Surgeon RANDY CARABALLO DO Dog Track Kennel Manager: na Pre-Operative Diagnosis anal fissure, rectal pain Post-Operative Diagnosis same Procedure & Operative Findings Date of Procedure 12/02/19 Procedure Performed/Findings left lateral internal sphincterotomy Anesthesia Type general Estimated Blood Loss Estimated blood loss (mL): minimal Specimens/Packing Specimens Removed na RANDY CARABALLO DO December 02, 2019 13:24
[2019-12-02] MEDS ORDERED: DOCU-143 PO (13:26)
[2019-12-02] MEDS ORDERED: HYDR-4226 PO (13:26)
--- NOTE | 2019-12-02 13:27 | Discharge Inst-Simple/Standard ---
Discharge Inst-Standard Discharge Medications New, Converted or Re-Newed RX: RX on Chart Patient Instructions/Follow Up Plan of Care/Instructions/FU: 2 weeks Shafer Activity as Tolerated: No Discharge Diet: Regular Diet (HIGH FIBER) Other Inst to Patient Follow up Appt: Make appointment for 2 week. Instructions: No lifting greater than 10 pounds. No strenuous activity. May shower in 24 hours, no tub bath or soaking. Use incentive spirometer at home as directed. No Smoking Skin/Wound Care: SITZ BATH 3 TIMES A DAY AND AFTER BOWEL MOVEMENT Symptoms to Report: Appetite Changes, Extremity Discoloration, Numbness/Tingling, Swelling Increased, Bleeding Excessive, Eyesight Changes, Pain Increased, Urine Color Change, Constipation(Persistent), Fever over 101 degree F, Pain/Pressure in chest, Urinating Difficulty, Cough Up/Vomit Blood, Heart Beat Irreg/Pounding, Pain/Pressure in jaw, Vaginal Bleeding Increase, Cramps in feet or legs, Lightheadedness, Pain/Pressure in shoulder, Diarrhea(Persistent), Memory Changes Suddenly, Questions/Concerns, Weight gain consecutive days, Dizziness/Fainting, Nausea/Vomiting, Shortness of Breath, Weight gain over 2 pounds If questions or concerns contact your physician Or seek help at emergency department. RADNY SHAFER DO December 02, 2019 13:27
--- NOTE | 2019-12-05 19:34 | OPERATIVE REPORT ---
DATE OF SERVICE: 12/02/2019 PREOPERATIVE DIAGNOSIS: Anal fissure. POSTOPERATIVE DIAGNOSIS: Anal fissure. PROCEDURE: Left lateral internal sphincterotomy. SURGEON: Randy Shafer DO ANESTHESIA: General. ESTIMATED BLOOD LOSS: Minimal. COMPLICATIONS: None. INDICATIONS: The patient is a 49-year-old female with a posterior anal fissure. She has quite a bit of discomfort with it. She understands risks and benefits of procedure and wished to proceed with procedure. Consent was signed in the chart. DESCRIPTION OF PROCEDURE: The patient was taken to the operating suite. She was prepped and draped in sterile fashion. Surgical pause was performed. The digital rectal exam was performed by instilling the posterior anal fissure. No other pathology noted. A speculum was inserted in the rectum and began to be opened until the internal sphincter was easily palpated. A small incision was made on the lateral aspect just above it, which the mucosa was then divided until the sphincter was palpable and this was then partially transected with cautery. This allowed for more dilation of the anal canal and the mucosa was then closed using 3-0 Vicryl. The fissure was then closed using 0 Vicryl as well. Local anesthetic was infiltrated around the left anus. Gelfoam and Vaseline packing was inserted into the anus for hemostasis purposes as well. The patient tolerated procedure well without any complications. She was taken to recovery room in stable condition. Job ID: [id number] DocumentID: [id number] Dictated Date: 12/05/2019 14:55:16 Assistant Professor Of Dietetics Date: 12/05/2019 19:32:43 Dictated By: RANDY SHAFER DO [facility]
== END 2019-12-02 14:35 | disposition home or self-care (01) ==
LOC: SDC 08:28
PROVIDERS: ATTEND Surgery
DX: K60.2 Anal fissure, unspecified (principal); K62.89 Other specified diseases of anus and rectum; G43.909 Migraine, unspecified, not intractable, without status migrainosus; K21.9 Gastro-esophageal reflux disease without esophagitis; I10 Essential (primary) hypertension; E55.9 Vitamin D deficiency, unspecified; E66.01 Morbid (severe) obesity due to excess calories; F51.03 Paradoxical insomnia; F41.9 Anxiety disorder, unspecified; F17.210 Nicotine dependence, cigarettes, uncomplicated; F32.9 Major depressive disorder, single episode, unspecified; Z90.89 Acquired absence of other organs; Z79.899 Other long term (current) drug therapy; Z68.42 Body mass index [BMI] 45.0-49.9, adult; Z83.6 Family history of other diseases of the respiratory system
CPT/HCPCS: 84703; 87081

== ENCOUNTER → 2020-06-25 | Outpatient (CLI) | payer BC ==
[~2020-06-25] MED LIST changes: +ASCO100024 PO; -ASCO10006 PO; +DOCU-143 PO; +HYDR-4226 PO
== END ==
LOC: CARD 12:00
PROVIDERS: ATTEND Internal Medicine Cardiovascular Disease
DX: R00.2 Palpitations (principal); Z20.828 Contact with and (suspected) exposure to other viral communicable diseases
CPT/HCPCS: 93225; 93226

== ENCOUNTER → 2020-07-24 | Day surgery (SDC) | payer BC ==
[~2020-07-24] VITALS: Ht 157.5 cm; Wt 134.0 kg
[~2020-07-24] MED LIST changes: +LIDOCAINE 1% INJ 20 ML 20 ML VIAL ONE
[2020-07-24 09:30] VITALS: BP 113/62
--- NOTE | 2020-07-24 10:35 | NUR ---
ambulatory on dc, has wound check scheduled for Thursday at office, understands dc instructions
--- NOTE | 2020-07-24 13:21 | OPERATIVE REPORT ---
DATE OF SERVICE: 07/24/2020 PREOPERATIVE DIAGNOSIS: Palpitations. POSTOPERATIVE DIAGNOSIS: Palpitations. PROCEDURE PERFORMED: Implantable loop recorder implantation. INDICATIONS FOR PROCEDURE: The patient is a 50-year-old lady, who has been experiencing palpitations, which are infrequent, but quite bothersome to her. Implantable loop recorder implantation was carried out after having obtained an informed consent. DESCRIPTION OF PROCEDURE: [facility] The left prepectoral area was prepared and draped in the usual sterile fashion. Lidocaine 1% was used for local anesthesia. The tools provided with the implantable loop recorder were used to make a subcutaneous pocket anterior to the left fourth intercostal space into which the device was placed. The device is a [employer] implantable loop recorder with serial number [id number]. She tolerated the procedure well. The wound edges were closed with Dermabond and Steri-Strips. Job ID: [id number] DocumentID: [id number] Dictated Date: 07/24/2020 10:05:56 It Sales Consultant Date: 07/24/2020 13:21:04 Dictated By: NIKOLAI DOZIER MD, MA, FACP, FACC,
== END ==
LOC: CATH 09:01
PROVIDERS: ATTEND Internal Medicine Cardiovascular Disease
DX: I47.1 Supraventricular tachycardia (principal); F41.9 Anxiety disorder, unspecified; G47.00 Insomnia, unspecified; K21.9 Gastro-esophageal reflux disease without esophagitis; I34.0 Nonrheumatic mitral (valve) insufficiency; E66.9 Obesity, unspecified; Z68.43 Body mass index [BMI] 50.0-59.9, adult; F17.210 Nicotine dependence, cigarettes, uncomplicated; Z79.899 Other long term (current) drug therapy; Z83.3 Family history of diabetes mellitus; Z80.9 Family history of malignant neoplasm, unspecified
CPT/HCPCS: 33285; C1764

== ENCOUNTER → 2020-07-27 | Outpatient (CLI) | payer BC ==
[~2020-07-27] VITALS: Ht 157 cm; Wt 134.0 kg
[~2020-07-27] MED LIST changes: +CATHETER FLUSH 10 ML SYR IV PRN; -LIDOCAINE 1% INJ 20 ML 20 ML VIAL ONE; +REGADENOSON 0.4 MG/5 ML SYR (LEXISCAN) IV ONE
[2020-07-27 09:18] VITALS: BP 131/85
== END ==
LOC: CARD 07:44
PROVIDERS: ATTEND Internal Medicine Cardiovascular Disease
DX: R06.09 Other forms of dyspnea (principal)
CPT/HCPCS: 78452; 93017; A9502

== ENCOUNTER → 2020-11-07 | Outpatient (CLI) | payer BC ==
[~2020-11-07] MED LIST changes: -CATHETER FLUSH 10 ML SYR IV PRN; -REGADENOSON 0.4 MG/5 ML SYR (LEXISCAN) IV ONE
--- NOTE | 2020-11-07 12:53 | Diagnostic Imaging Report ---
INDICATION: Nausea, vomiting. COMPARISON: 07/18/2015 TECHNIQUE: 2 radiographs of the chest dated 11/07/2020 FINDINGS: Loop recorder is noted overlying the left heart border. The cardiac silhouette is the upper limits of normal in size, though similar to the prior exam. No significant pulmonary vascular congestion. The lungs are clear. No pleural effusion. No pneumothorax. Lab-band is present overlying the left upper abdomen appearing within a similar configuration to the prior examination within the limits of the exam. No acute osseous abnormality. IMPRESSION: Interval placement of a loop recorder overlying left heart. Otherwise, similar examination without acute cardiopulmonary abnormality. Dictated by: Dictated on workstation # [id number]
== END ==
LOC: RAD 12:15
PROVIDERS: ATTEND Surgery
DX: Z45.09 Encounter for adjustment and management of other cardiac device (principal); R11.2 Nausea with vomiting, unspecified
CPT/HCPCS: 71046

== ENCOUNTER 2020-11-26 05:33 | Outpatient (RCR) | payer BC ==
[~2020-11-26] VITALS: Ht 157.5 cm; Wt 136.3 kg
[~2020-11-26 05:33] MED LIST changes: +DOCU-241 PO
== END 2020-11-29 08:44 | disposition home or self-care (01) ==
LOC: PREOP 05:33
PROVIDERS: ATTEND Surgery
DX: Z01.812 Encounter for preprocedural laboratory examination (principal); K21.9 Gastro-esophageal reflux disease without esophagitis; Z20.822 Contact with and (suspected) exposure to COVID-19
CPT/HCPCS: 87635

== ENCOUNTER 2020-11-28 10:31 | Day surgery (SDC) | payer BC ==
--- NOTE | 2020-11-20 19:05 | HISTORY AND PHYSICAL ---
DATE OF SERVICE: DATE OF ADMISSION: 11/28/2020. HISTORY OF PRESENT ILLNESS: The patient is a 50-year-old female, who is known to us. She is status post laparoscopic gastric band placement in 2012. She did well with weight loss and lost approximately 100 pounds, which was in 04/2015. She reports, however, she did have an endocrine disorder with what sounded to be a thyroid adenoma that required right thyroid lobectomy and isthmusectomy. She reports after the surgery that she automatically gained 60 pounds in three months. She states that she is still restricted and does have episodes of regurgitation and only eats small amounts of food. There is currently no fluid in the band and that this may represent a lap band slippage. She did undergo a chest x-ray; however, this did not show any abnormalities. It was decided to proceed with an EGD to further investigate her regurgitation as well as the lap band further. PAST MEDICAL HISTORY: Gastroesophageal reflux disease, migraines, thyroid adenoma, heart murmur, and anxiety. PAST SURGICAL HISTORY: Tonsillectomy in 1978, cholecystectomy in 1990, laparoscopic adjustable gastric band in 2012, right thyroidectomy and isthmusectomy in 2014, left lateral internal sphincterotomy in 2019 and internal heart monitor placed in 2020. ALLERGIES: SULFA. MEDICATIONS: 1. Probiotic ____ vitamin B12 1000 mcg daily. 2. Vitamin D3 125 mcg daily. 3. Vitamin C 1000 mg daily. 4. Fioricet 50/300/40 mg q. 4 hours p.r.n. 5. Imitrex 100 mg p.r.n. 6. Levocetirizine 5 mg daily. 7. Metoprolol 50 mg b.i.d. 8. Citalopram 40 mg daily. 9. Omeprazole 40 mg daily. 10. Xanax 0.5 mg p.r.n. SOCIAL HISTORY: Positive for tobacco smoker, half pack per day for 30 years. Negative for alcohol. FAMILY HISTORY: Father, hypertension. Sister, hypertension. REVIEW OF SYSTEMS: This is a well-nourished female in no acute distress. She is not experiencing any shortness of breath or difficulty breathing. No chest pain, palpitations or diaphoresis. No nausea, vomiting or abdominal pain. She does report episodes of reflux as well as regurgitation with small amounts of food. No diarrhea or constipation. No red blood per rectum. No dark tarry stools. No fever or chills. No recent inadvertent weight loss. PHYSICAL EXAMINATION: VITAL SIGNS: Blood pressure is 128/86. Current weight is 304.1 pounds at 5 feet 2 inches with a body mass index of 55.6. CHEST: Clear. Good breath sounds bilaterally. HEART: Regular, no murmurs. EXTREMITIES: No lower extremity edema. Negative Homans sign. HEENT: No scleral icterus. NECK: No cervical lymphadenopathy. ABDOMEN: Upon examination, her abdomen is soft, nontender, and nondistended. The lap band port is intact with no surrounding redness or erythema and there are no hernias palpable. SKIN: Warm, dry and pink. NEUROLOGIC: Awake, alert and oriented x3. ASSESSMENT AND PLAN: A 50-year-old female with morbid obesity, who is status post laparoscopic adjustable gastric band, who has developed issues with reflux and regurgitation with small amounts of food despite not having any fluid in the band. She did undergo a chest x-ray, which did not show any abnormalities. It was decided that we to now proceed with an EGD with biopsies as appropriate to further investigate her reflux as well as the lap band. It was discussed with the patient that if there is any lap band slippage that we would need to proceed with removal of the laparoscopic adjustable gastric band laparoscopically. The patient verbalized understanding of instructions. Job ID: [id number] DocumentID: [id number] Dictated Date: 11/20/2020 09:55:00 Materials Tech Date: 11/20/2020 11:35:57 Dictated By: CHIARA MCCLAIN APRN
[~2020-11-28] VITALS: Ht 157.5 cm; Wt 136.3 kg
[~2020-11-28 10:31] MED LIST changes: +LACTATED RINGERS 1,000 ML IV ONE
[2020-11-28] MEDS ORDERED: LACTATED RINGERS 1,000 ML IV STA (10:36)
[2020-11-28] MEDS ORDERED: HURRICAINE EXT TUBE (BENZOCAINE) XX PRN (10:45)
[2020-11-28] MEDS ORDERED: LIDOCAINE JELLY 2% 6 ML SYRINGE MM PRN (10:45)
[2020-11-28 10:57] VITALS: BP 118/81
[2020-11-28] MEDS ORDERED: proPOfol 200 MG/20 ML (DIPRIVAN) VIAL IV ONE ×2 (11:07→11:30)
[2020-11-28] MEDS ORDERED: MIDAZOLAM 2 MG/2 ML (VERSED) VIAL ONE (11:08)
[2020-11-28] MEDS ORDERED: HURRICAINE EXT TUBE (BENZOCAINE) ONE (11:10)
[2020-11-28] MEDS ORDERED: LIDOCAINE JELLY 2% 6 ML SYRINGE ONE (11:16)
--- NOTE | 2020-11-28 11:23 | Progress Note-Pre Operative ---
Pre-Operative Progress Note H&P Reviewed The H&P was reviewed, patient examined and no changes noted. Date Seen by Provider: November 28, 2020 Time Seen by Provider: 11:00 Date H&P Reviewed: November 28, 2020 Time H&P Reviewed: 11:00 Pre-Operative Diagnosis: SYLVESTER DE PAZ MD November 28, 2020 11:23
--- NOTE | 2020-11-28 11:24 | Discharge Inst-Surgical ---
D/C Lap Instructions-CRUZ Follow Up Appt in 2 weeks Activity as tolerated High Fiber Diet 25g or more per day Avoid Alcohol, Caffeine, Spicy [place] and Acid foods. Drink 64 fluid oz or more of fluids per day. Symptoms to Report: Fever over 101 degree F, Nausea/Vomiting If any problems/questions: Contact your physician or go to Emergency Room SYLVESTER ARROYO MD November 28, 2020 11:24
[2020-11-28] MEDS ORDERED: morphine INJ 10 MG/ML 1ML (SYR OR VIAL) IVP PRN ×2 (11:30)
[2020-11-28] MEDS ORDERED: ACETAMINOPHEN 325 MG TABLET PO PRN (11:30)
[2020-11-28] MEDS ORDERED: HYDROcodone/APAP 5 MG/325 MG (LORTAB) TAB PO PRN (11:30)
[2020-11-28] MEDS ORDERED: ONDANSETRON 4 MG/2 ML (SDV) Z0FRAN IVP PRN (11:30)
[2020-11-28 11:56] VITALS: BP 117/55
[2020-11-28 12:00] VITALS: BP 117/55
--- NOTE | 2020-11-28 12:03 | Progress Note-Post Operative ---
Post-Operative Progess Note Surgeon (s)/Color Television Console Monitor (s) Surgeon SYLVESTER ARROYO MD Color Television Console Monitor: none Pre-Operative Diagnosis GERD Post-Operative Diagnosis reflux esophagitis(stage 2-3), small gastric pouch, superior band slippage with hiatal hernia, moderate gastritis. Procedure & Operative Findings Date of Procedure 11/28/20 Procedure Performed/Findings EGD with bx. Anesthesia Type mac Estimated Blood Loss Estimated blood loss (mL): minimal Specimens/Packing Specimens Removed ge jxn, antrum SYLVESTER ARROYO MD November 28, 2020 12:03
--- NOTE | 2020-11-28 12:20 | Anesthesia-General Post-Op ---
MAC Patient Condition Mental Status/LOC: Same as Preop Cardiovascular: Satisfactory Nausea/Vomiting: Absent Respiratory: Satisfactory Pain: Controlled Complications: Absent Post Op Complications Complications None Follow Up Care/Instructions Patient Instructions None needed. Anesthesiology Discharge Order Discharge Order Patient is doing well, no complaints, stable vital signs, no apparent adverse anesthesia problems. No complications reported per nursing. LONA COLE CRNA November 28, 2020 12:20
[2020-11-28 12:30] VITALS: BP 116/65
[2020-11-28 12:43] VITALS: BP 116/65
--- NOTE | 2020-11-28 16:22 | OPERATIVE REPORT ---
DATE OF SERVICE: 11/28/2020 ATTENDING RFID SYSTEMS ARCHITECT: Kisha Dudley APRN. PREOPERATIVE DIAGNOSES: Persistent gastroesophageal reflux disease and regurgitation. POSTOPERATIVE DIAGNOSES: Reflux esophagitis between stage II and III, small gastric pouch, superior band slippage, moderate gastritis and no distal obstructions. PROCEDURES PERFORMED: EGD with biopsy. SURGEON: Sylvester Arroyo MD. ANESTHESIA: Monitored anesthesia care. ESTIMATED BLOOD LOSS: Minimal. FINDINGS: Reflux esophagitis between stage II and III, small gastric pouch, superior band slippage, moderate gastritis and no distal obstructions. DISPOSITION: The patient tolerated the procedure well. INDICATIONS FOR PROCEDURE: The patient is a 50-year-old female known to us. She is status post laparoscopic gastric band placement in 2012. She did well with weight loss and lost approximately 100 pounds, which was in 04/2015. She reports that she did develop an endocrine disorder, which sounded to be a thyroid adenoma that required a right thyroid lobectomy and isthmusectomy. She reports that after surgery, she automatically gained 60 pounds in three months. She states that she is still restricted and does have episodes of regurgitation and only able to eat small amounts of food. She currently does not have any fluid in the band, which likely represents a band slippage. She did undergo a chest x-ray; however, this did not show any abnormalities. It was now decided to proceed with an EGD to further investigate her symptoms as well as the position of the band. DESCRIPTION OF PROCEDURE: The patient was brought to the endoscopy suite and laid in the left lateral decubitus position with the head slightly elevated. After adequate IV pain and sedative medications and monitored anesthesia care, the mouthpiece was applied. The endoscope was then intubated into the esophageal opening and esophagus insufflated and the vocal cords, epiglottis and vallecula identified and appeared to be normal. The endoscope was then gently intubated, the esophageal opening and esophagus insufflated. The endoscope was then advanced to the first, second and third portion of the esophagus. At the level of the GE junction, there was a reflux esophagitis between stage II to III. A biopsy was taken with forceps with visualization of good hemostasis. Just distal to the GE junction was what appeared to be a small gastric pouch likely consistent with a superior slippage of the band. The endoscope was then advanced through the aperture of the band and the endoscope retroflexed, visualizing a superior band slippage with movement of the band and to what might be a hiatal hernia again likely consistent with a superior band slippage. There was a moderate severity gastritis. No formal ulcerations, polyps or any neoplasms. A biopsy was taken of the antrum to rule out H. pylori with visualization of good hemostasis. The endoscope was then advanced to the pylorus and the first and second portion of the duodenum, which appeared normal. There was also no band erosion. The endoscope was then slowly withdrawn while taking a second look and suctioning of residual air with no additional findings. The patient tolerated the procedure well. We will have her continue with medical management for now; however, we will also schedule her for a laparoscopic removal of the laparoscopic adjustable gastric band and once the chronic inflammation has subsided and her foregut anatomy has gone back to normal, we will then proceed with a repair of the hiatal hernia as well as likely a gastric sleeve resection. 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 Job ID: [id number] DocumentID: [id number] Dictated Date: 11/28/2020 11:55:38 Guest Associate Date: 11/28/2020 16:21:42 Dictated By: SYLVESTER ARROYO MD
== END 2020-11-28 12:43 | disposition home or self-care (01) ==
LOC: ENDO 10:31
PROVIDERS: ATTEND Surgery
DX: K21.00 Gastro-esophageal reflux disease with esophagitis, without bleeding (principal); K29.70 Gastritis, unspecified, without bleeding; K31.4 Gastric diverticulum; K95.09 Other complications of gastric band procedure; D34 Benign neoplasm of thyroid gland; G43.909 Migraine, unspecified, not intractable, without status migrainosus; G47.33 Obstructive sleep apnea (adult) (pediatric); F32.9 Major depressive disorder, single episode, unspecified; F41.9 Anxiety disorder, unspecified; F17.210 Nicotine dependence, cigarettes, uncomplicated; E66.01 Morbid (severe) obesity due to excess calories; Z68.43 Body mass index [BMI] 50.0-59.9, adult; Z79.899 Other long term (current) drug therapy; Z90.89 Acquired absence of other organs; Z90.49 Acquired absence of other specified parts of digestive tract; Z82.49 Family history of ischemic heart disease and other diseases of the circulatory system
CPT/HCPCS: 84703

== ENCOUNTER 2021-03-15 13:59 | Outpatient (CLI) | payer BC ==
[~2021-03-15] VITALS: Ht 157.5 cm; Wt 136.3 kg
[~2021-03-15 13:59] MED LIST changes: -DOCU-241 PO; +DOCU-26 PO; -LACTATED RINGERS 1,000 ML IV ONE; -OMEP40CA27 PO; +OMEP40CA6 PO
[2021-03-15] MEDS ORDERED: DOXY100T31 PO (15:06)
== END 2021-03-15 15:08 | disposition home or self-care (01) ==
LOC: PREOP 13:59
PROVIDERS: ATTEND Surgery
DX: Z01.818 Encounter for other preprocedural examination (principal)

== ENCOUNTER 2021-03-19 11:08 | Day surgery (SDC) | payer BC ==
--- NOTE | 2021-03-15 19:34 | HISTORY AND PHYSICAL ---
DATE OF SERVICE: DATE OF ADMISSION: 03/19/2021 ATTENDING COOK RELIEF: Kisha Dudley APRN HISTORY OF PRESENT ILLNESS: The patient is a 50-year-old female known to us. She is status post laparoscopic gastric sleeve resection in 2012. She did well with weight loss and lost approximately 100 pounds, which was in 2014. She reports that she did develop an endocrine disorder, which sounded to be a thyroid adenoma that required a right thyroid lobectomy and isthmusectomy. She reports that after that surgery, she automatically gained 60 pounds over 3 months. She states that she is still restricted; however, has developed issues with regurgitation, is only able to take small amounts of food. This is despite the fact that she does not have any fluid in the band. A chest x-ray was performed, which did show increased angulation of the band from midline, likely consistent with a superior slippage. On 11/28/2020, she underwent an EGD and was found to have a reflux esophagitis between stage II and III, small gastric pouch, and what appeared to be a superior band slippage. We will continue to proceed with medical management; however, her symptoms continued to worsen. PAST MEDICAL HISTORY: Morbid obesity, gastroesophageal reflux disease, thyroid adenoma, migraine headaches, cardiac murmur, anxiety. PAST SURGICAL HISTORY: Tonsillectomy 1978, cholecystectomy 1990. Laparoscopic adjustable gastric band 2012, right thyroidectomy and isthmusectomy 2014, left lateral internal sphincterotomy 2019. ALLERGIES: SULFA. MEDICATIONS: Fioricet p.r.n., Imitrex 100 mg daily, levocetirizine 5 mg daily, metoprolol 50 mg daily, citalopram 40 mg daily, omeprazole 40 mg daily, alprazolam 0.5 mg p.r.n. SOCIAL HISTORY: Negative smoke, negative alcohol. FAMILY HISTORY: Father and sibling with essential hypertension. VITAL SIGNS: Stable. Current blood pressure 121/86. Current weight 304 pounds at 5 feet 2 inches and body mass index of 55.6. REVIEW OF SYSTEMS: Well-nourished female currently in no acute distress. She is not experiencing any shortness of breath or difficulty breathing. No chest pain, palpitations, diaphoresis. No nausea, vomiting with intermittent episodes of dysphagia and regurgitation. She does not report any hematemesis, no coffee ground emesis. She also does not report any red blood per rectum nor any dark tarry stools. No fever, chills, no recent inadvertent weight loss. All other review of systems negative. PHYSICAL EXAMINATION: CHEST: Clear. Good breath sounds bilaterally. HEART: Regular, no murmurs. EXTREMITIES: No lower extremity edema, negative Homans sign. HEENT: No scleral icterus. NECK: No cervical lymphadenopathy. ABDOMEN: Soft, nontender, nondistended. SKIN: Warm, dry. ASSESSMENT AND PLAN: A 50-year-old female with a symptomatic superior band slippage. The pathophysiology of this was explained to the patient and the resultant symptomatology that she has been having and we tried conservative management; however, this did not work and she will require diagnostic laparoscopy as well as removal of the adjustable gastric band and the subcutaneous reservoir. We will schedule this. Job ID: [id number] DocumentID: [id number] Dictated Date: 03/15/2021 18:34:18 Executive Receptionist Date: 03/15/2021 18:59:09 Dictated By: SYLVESTER ARROYO MD MTDD
[2021-03-19] VITALS (13 sets, daily range): BP systolic 95–131; BP diastolic 51–80
[~2021-03-19] VITALS: Ht 157.5 cm; Wt 136.3 kg
[~2021-03-19 11:08] MED LIST changes: +DOXY100T31 PO
[2021-03-19] MEDS ORDERED: ceFAZolin 2 GM IV Premixed 50 ML IV ONE (11:30)
[2021-03-19] MEDS ORDERED: LIDOCAINE/EPI 1%-1:200,000 (XYLOCAINE) 30 ML VIAL ONE (12:16)
[2021-03-19] MEDS: LACTATED RINGERS 1,000 ML IV PRN ×2 (12:17→14:07)
[2021-03-19] MEDS ORDERED: GLYCOPYRROLATE 0.2 MG/ML (ROBINUL) 2 ML VIAL ONE ×2 (12:31→13:57)
[2021-03-19] MEDS ORDERED: NEOSTIGMINE 3 MG/3 ML VIAL ONE (12:31)
[2021-03-19] MEDS ORDERED: LIDOCAINE PF 2% 5 ML (XYLOCAINE) VIAL ONE (12:31)
[2021-03-19] MEDS ORDERED: proPOfol 200 MG/20 ML (DIPRIVAN) VIAL IV ONE (12:31)
[2021-03-19] MEDS ORDERED: ROCURONIUM 10 MG/ML 5 ML SYRINGE IV ONE (12:31)
[2021-03-19] MEDS ORDERED: ONDANSETRON 4 MG/2 ML (SDV) Z0FRAN ONE (12:31)
[2021-03-19] MEDS ORDERED: MIDAZOLAM 2 MG/2 ML (VERSED) VIAL ONE (12:31)
[2021-03-19] MEDS ORDERED: fentaNYL INJ 100 MCG/2 ML AMP ONE (12:31)
[2021-03-19] MEDS ORDERED: IRON PO (13:18)
--- NOTE | 2021-03-19 13:20 | Progress Note-Pre Operative ---
Pre-Operative Progress Note H&P Reviewed The H&P was reviewed, patient examined and no changes noted. Date Seen by Provider: Mar 19, 2021 Time Seen by Provider: 13:15 Date H&P Reviewed: Mar 19, 2021 Time H&P Reviewed: 13:10 Pre-Operative Diagnosis: Symptomatic superior band slippage CHIARA MCCLAIN APRN Mar 19, 2021 13:20
[2021-03-19] MEDS ORDERED: HYDR-3817 PO (13:22)
--- NOTE | 2021-03-19 13:22 | Discharge Inst-Surgical ---
D/C Lap Instructions-KIDO Reconcile Patient Problems Problems Reviewed?: Yes New, Converted, or Re-Newed RX: RX on Chart Follow Up Appt in 2 weeks Activity as tolerated No driving for 24 hours No driving while on pain medications Incentive Spirometry use every 2 hours while awake Regular Diet Symptoms to Report: Fever over 101 degree F, Nausea/Vomiting Infection Signs and Symptoms to report: Increased redness, Foul odor of wound, Increased drainage Bathing instructions: May shower Operative Area Clean/Dry; Keep incision clean/dry If any problems/questions: Contact your physician or go to Emergency Room CHIARA MCCLAIN APRN Mar 19, 2021 13:22
[2021-03-19] MEDS ORDERED: morphine INJ 10 MG/ML 1ML (SYR OR VIAL) IVP PRN (13:30)
[2021-03-19] MEDS ORDERED: ONDANSETRON 4 MG/2 ML (SDV) Z0FRAN IVP PRN ×2 (13:30→14:45)
[2021-03-19] MEDS ORDERED: ACETAMINOPHEN 325 MG TABLET PO PRN (13:30)
[2021-03-19] MEDS ORDERED: HYDROcodone/APAP 5 MG/325 MG (LORTAB) TAB PO ONE (13:30)
[2021-03-19] MEDS ORDERED: HYDROmorphone 2 MG/ML VIAL (DILAUDID) ONE (14:20)
--- NOTE | 2021-03-19 14:25 | Progress Note-Post Operative ---
Post-Operative Progess Note Surgeon (s)/Alarm Mechanic (s) Surgeon SYLVESTER ARROYO MD Alarm Mechanic: michael khan HEAD WAITER Pre-Operative Diagnosis Symptomatic superior band slippage, GERD Post-Operative Diagnosis same Procedure & Operative Findings Date of Procedure 03/19/21 Procedure Performed/Findings diagnostic laparoscopy, laparoscopic adjustable gastric band and subcutaneous port. Anesthesia Type get Estimated Blood Loss Estimated blood loss (mL): minimal Specimens/Packing Specimens Removed none SYLVESTER ARROYO MD Mar 19, 2021 14:25
[2021-03-19] MEDS ORDERED: SEVOFLURANE (ULTANE) 15 ML INHAL SOLN ONE (14:39)
[2021-03-19] MEDS ORDERED: morphine INJ 10 MG/ML 1ML (SYR OR VIAL) IVP ONE (14:45)
[2021-03-19] MEDS ORDERED: HYDROmorphone 2 MG/ML VIAL (DILAUDID) IV ONE (14:45)
--- NOTE | 2021-03-19 15:00 | Anesthesia-General Post-Op ---
General Patient Condition Mental Status/LOC: Same as Preop Cardiovascular: Satisfactory Nausea/Vomiting: Absent Respiratory: Satisfactory Pain: Controlled Complications: Absent Post Op Complications Complications None Follow Up Care/Instructions Patient Instructions None needed. Anesthesia/Patient Condition Patient Condition Patient is doing well, no complaints, stable vital signs, no apparent adverse anesthesia problems. MICHELLE SCHULER DO Mar 19, 2021 15:00
--- NOTE | 2021-03-19 15:10 | OPERATIVE REPORT ---
DATE OF SERVICE: 03/19/2021 ATTENDING PRIMARY CARE PHYSICIAN: Kisha Dudley APRN PREOPERATIVE DIAGNOSIS: Persistent gastroesophageal reflux disease and regurgitation. POSTOPERATIVE DIAGNOSES: Persistent gastroesophageal reflux disease and regurgitation with anterior slipped band. PROCEDURE: Diagnostic laparoscopy, laparoscopic removal of adjustable gastric band and subcutaneous reservoir. SURGEON: Sylvester Arroyo MD BED MAKER: Wander Adams APRN ANESTHESIA: General endotracheal. ESTIMATED BLOOD LOSS: Minimal. FINDINGS: Same as postoperative diagnosis. DISPOSITION: The patient tolerated the procedure well. INDICATIONS: The patient is a 50-year-old female known to us. She is status post laparoscopic gastric sleeve resection in 2012. She did well with weight loss and was able to lose approximately 100 pounds, which was in 2014. She did develop an endocrine disorder, which sounded to be a thyroid adenoma and required a right thyroid lobectomy if mastectomy. After the surgery, she automatically gained 60 pounds over 3 months. She is still restricted and has developed issues with gastroesophageal reflux disease and persistent regurgitation. This is despite the fact that she has had all the fluid removed from the band. On 11/28/2020, she underwent an EGD and was found to have a reflux esophagitis, stage III, very small gastric pouch and what appeared to be a superior band slippage. We continued to proceed with medical management with a PPI b.i.d. as well as Carafate; however, she continued to have worsening symptoms. DESCRIPTION OF PROCEDURE: The patient was brought to the operating room, laid supine on the table. After adequate IV pain and sedative medications and general endotracheal intubation, the abdomen was prepped and draped in standard surgical fashion. A 0.5% Marcaine with epinephrine was then used to anesthetize the overlying skin in the left upper abdominal quadrant and transverse skin incision made using a 15 blade. An 0 silk suture was applied to the medial aspect of the incision for retraction and a Veress needle inserted with a low opening pressure of 0 mmHg. The abdomen was then insufflated to 15 mmHg pressure. A 4-quadrant abdominal exploration was performed. There was significant liver hepatomegaly. Under direct visualization, we then proceeded to place a 10 mm port in the mid abdominal region, right of midline where the port was placed. This was done after the skin and peritoneal lining were anesthetized using 0.5% Marcaine with epinephrine. In a similar manner, we then proceeded to place a right upper abdominal quadrant 5 mm port. The epigastric region was then anesthetized using 0.5% Marcaine with epinephrine and a skin incision made using 11 blade and a tract was then created through the abdominal wall layers using a trocar to a 5 mm port. Through this opening, a medium sized Nathansen liver retractor was placed and the left lobe of the liver retracted anteriorly and superiorly. The patient was then placed in steep reverse Trendelenburg position. The gastric band was identified and appeared higher up towards the esophageal hiatus likely consistent with a superior slippage. There were no inflammatory changes. The buckle was then dissected out using a blunt dissection as well as the Sonicision. The buckle was unclasped the band tubing cut and then the adjustable gastric band was then removed from the circumference of the stomach. Good hemostasis was observed. The band was then removed through the 10 mm port site. The 10 mm port site fascia and peritoneum were then closed under direct visualization using a Rock-Dayna device. The abdomen was desufflated and remaining ports removed. The port was then removed by extending the skin incision laterally and the capsule identified and opened using electrocautery and the sutures holding in onto the fascia were then removed under direct visualization using electrocautery with visualization of good hemostasis. All port sites were then closed under direct visualization using a Rock-Dayna device and 0 Vicryl suture. The abdomen was then desufflated and the remaining ports removed. All skin incisions were closed using 4-0 Monocryl running subcuticular sutures. Wounds were then cleaned and covered with Dermabond. The patient tolerated the procedure well. We will start IV normal pain medication as well as a clear liquid diet. Once she is tolerating clears, has good pain control with oral pain medications, ambulating well, we will discharge her home. She will be instructed to do no heavy lifting or exertion for the next two weeks. Job ID: [id number] DocumentID: [id number] Dictated Date: 03/19/2021 14:33:46 Line Therapist Date: 03/19/2021 15:09:48 Dictated By: SYLVESTER ARROYO MD
[2021-03-19] MEDS ORDERED: OXYC1TAB11 PO (16:35)
== END 2021-03-19 18:15 | disposition home or self-care (01) ==
LOC: SDC 11:08
PROVIDERS: ATTEND Surgery
DX: K95.09 Other complications of gastric band procedure (principal); K21.9 Gastro-esophageal reflux disease without esophagitis; I10 Essential (primary) hypertension; G47.33 Obstructive sleep apnea (adult) (pediatric); E66.01 Morbid (severe) obesity due to excess calories; D34 Benign neoplasm of thyroid gland; F41.9 Anxiety disorder, unspecified; Z90.49 Acquired absence of other specified parts of digestive tract; Z79.899 Other long term (current) drug therapy; Z68.43 Body mass index [BMI] 50.0-59.9, adult
CPT/HCPCS: 84703; 87081

== ENCOUNTER → 2021-05-03 | Outpatient (CLI) | payer BC ==
[~2021-05-03] MED LIST changes: +CATHETER FLUSH 10 ML SYR IV PRN; +HOLD METFORMIN - RECEIVED CONTRAST 20 ML VIAL IV SCH; +HYDR-3817 PO; +IOHEXOL 350 MG/ML 100 ML (OMNIPAQUE 350) VIAL IV ONE; +IRON PO; +NS 100 ML (IVPB) BAG IV ONE; +OXYC1TAB11 PO
--- NOTE | 2021-05-03 08:52 | Diagnostic Imaging Report ---
PROCEDURE: CT abdomen and pelvis with contrast. TECHNIQUE: Multiple contiguous axial images were obtained through the abdomen and pelvis after administration of intravenous contrast. Auto Exposure Controls were utilized during the CT exam to meet ALARA standards for radiation dose reduction. All CT scans use one or more of the following dose optimizing techniques: automated exposure control, MA and/or KvP adjustment based on patient size and exam type or iterative reconstruction. DATE: May 03, 2021. COMPARISON: CT abdomen pelvis February 23, 2008. INDICATION: 50-year-old female, abdominal pain. FINDINGS: The visualized portions of the lung bases are clear. The heart is not enlarged. There is no pericardial effusion. The liver is unremarkable in size and contour. The main, right, left portal veins are pain. Gallbladder surgically absent. There is no biliary ductal dilation. The main pancreatic duct is not abnormally dilated. Unremarkable appearance of the pancreatic parenchyma. The spleen is normal in size. The adrenal glands are unremarkable. There is a low-attenuation 8 mm lesion in the right kidney with internal attenuation of 6 Hounsfield units diagnostic for a benign cyst. The urinary collecting systems are not distended. There is no identified renal or ureteral stone. The urinary bladder is unremarkable. There is an intrauterine contraceptive device in the midline uterus which is likely in the endometrial cavity. The intestinal tract is not distended. The appendix is unremarkable and well seen on axial image 65 and adjacent sequential images. There is no free intraperitoneal air. There is no drainable fluid collection. There is no free pelvic fluid. There is a focal area of fluid type signal in the anterior abdominal wall subcutaneous tissues to the right of midline on axial image 24 measuring 5.7 x 3.2 cm in size. There is adjacent inflammatory stranding. There is additional stranding in the anterior abdominal wall subcutaneous fat less prominent extending more inferiorly. There is no identified abnormally enlarged lymph node in the abdomen or pelvis which meets CT size criteria for adenopathy. There is no identified acute bony abnormality. There are mild degenerative changes of the spine. IMPRESSION: CT ABDOMEN AND PELVIS. 1. Stranding in the anterior abdominal wall subcutaneous tissues with focal area of fluid attenuation in the subcutaneous tissues of the anterior abdominal wall to the right of midline at the craniocaudal level of the liver which may relate to a developing nonspecific fluid collection measuring 5.7 x 3.2 cm in size. Phlegmon/early abscess and hematoma are in the differential diagnosis. 2. No identified acute abnormality within the abdominal or pelvic cavities. Dictated by: Dictated on workstation # [id number]
== END ==
LOC: RAD 08:15
PROVIDERS: ATTEND Nurse Practitioner Family
DX: S36.92XA Contusion of unspecified intra-abdominal organ, initial encounter (principal); K31.89 Other diseases of stomach and duodenum
CPT/HCPCS: 74177

== ENCOUNTER → 2021-05-20 | Outpatient (CLI) | payer BC ==
[~2021-05-20] MED LIST changes: -CATHETER FLUSH 10 ML SYR IV PRN; -HOLD METFORMIN - RECEIVED CONTRAST 20 ML VIAL IV SCH; -IOHEXOL 350 MG/ML 100 ML (OMNIPAQUE 350) VIAL IV ONE; -NS 100 ML (IVPB) BAG IV ONE
--- NOTE | 2021-05-20 15:43 | Diagnostic Imaging Report ---
INDICATION: Routine screening. Comparison is made with prior mammogram from 07/29/2018 and 05/28/2017. 2-D and 3-D bilateral screening mammography was performed with CAD. Scattered fibroglandular densities are identified bilaterally. A cardiac loop recorder in the left breast is noted. There are scattered benign calcifications. No mass or malignant-appearing microcalcifications are seen. Axillae are unremarkable. IMPRESSION: No mammographic features suspicious for malignancy are identified. BI-RADS Category 2 ACR BI-RADS Category 2: Benign findings. Result letter will be mailed to the patient. Note: At least 10% of breast cancer is not imaged by mammography. Dictated by: Dictated on workstation # [id number]
== END ==
LOC: RAD 14:45
PROVIDERS: ATTEND Surgery
DX: Z12.31 Encounter for screening mammogram for malignant neoplasm of breast (principal)
CPT/HCPCS: 77063; 77067

== ENCOUNTER → 2021-06-14 | Outpatient (CLI) | payer BC ==
[~2021-06-14] MED LIST changes: -CITA40TA11 PO; +CITA40TA13 PO
--- NOTE | 2021-06-14 12:58 | Diagnostic Imaging Report ---
INDICATION: Abdominal pain. PROCEDURE: Ultrasound abdomen complete. TECHNIQUE: Multiple real-time grayscale images were obtained of the abdomen in various projections. Overall quality of the study is somewhat limited due to patient large body habitus and overlying bowel gas. Liver is enlarged at 21 cm. There is increased echogenicity throughout the liver consistent with hepatic steatosis. No discrete liver mass is detected. The gallbladder is surgically absent. No biliary ductal dilatation is seen. Extrahepatic bile duct as well as the pancreas are obscured by bowel gas. Spleen is normal in size at approximately 13.1 cm. Aorta and IVC are obscured by bowel gas. Both the right and left kidneys are without evidence of calculi or hydronephrosis. There is no ascites. IMPRESSION: 1. Hepatomegaly and hepatic steatosis. 2. Status post cholecystectomy. 3. No other significant abnormality is seen although the study is somewhat compromised due to patient body habitus and overlying bowel gas. Dictated by: Dictated on workstation # [id number]
== END ==
LOC: RAD 09:00
PROVIDERS: ATTEND Surgery
DX: K76.0 Fatty (change of) liver, not elsewhere classified (principal); Z98.890 Other specified postprocedural states
CPT/HCPCS: 76700

== ENCOUNTER 2021-06-20 08:35 | Outpatient (CLI) | payer BC ==
[~2021-06-20] VITALS: Ht 157.5 cm; Wt 137.9 kg
[2021-06-21] MEDS ORDERED: METF-399 PO (15:04)
[2021-06-21] MEDS ORDERED: OMG1KC PO (15:04)
== END 2021-06-21 15:09 | disposition home or self-care (01) ==
LOC: PREOP 08:35
PROVIDERS: ATTEND Surgery
DX: Z01.818 Encounter for other preprocedural examination (principal)

== ENCOUNTER 2021-06-27 11:23 | Day surgery (SDC) | payer BC ==
[~2021-06-27] VITALS: Ht 157.5 cm; Wt 137.9 kg
[2021-06-27] VITALS (9 sets, daily range): BP systolic 33–130; BP diastolic 59–82
[~2021-06-27 11:23] MED LIST changes: +METF-399 PO; +OMG1KC PO
--- NOTE | 2021-06-27 11:55 | Progress Note-Pre Operative ---
Pre-Operative Progress Note H&P Reviewed The H&P was reviewed, patient examined and no changes noted. Date Seen by Provider: Jun 27, 2021 Time Seen by Provider: 11:45 Date H&P Reviewed: Jun 27, 2021 Time H&P Reviewed: 11:45 Pre-Operative Diagnosis: abdominal pain SYLVESTER ARROYO MD Jun 27, 2021 11:55
[2021-06-27] MEDS ORDERED: HYDR-3817 PO (11:58)
--- NOTE | 2021-06-27 11:59 | Discharge Inst-Surgical ---
D/C Lap Instructions-CRUZ New, Converted, or Re-Newed RX: RX on Chart Follow Up Appt in 2 weeks Activity as tolerated No driving for 24 hours No driving while on pain medications Incentive Spirometry use every 2 hours while awake Regular Diet Symptoms to Report: Fever over 101 degree F, Nausea/Vomiting Infection Signs and Symptoms to report: Increased redness, Foul odor of wound, Increased drainage Bathing instructions: May shower Operative Area Clean/Dry; Keep incision clean/dry If any problems/questions: Contact your physician or go to Emergency Room SYLVESTER ARROYO MD Jun 27, 2021 11:59
[2021-06-27] MEDS ORDERED: ceFAZolin 2 GM IV Premixed 50 ML IV ONE (12:00)
[2021-06-27] MEDS ORDERED: ACETAMINOPHEN 325 MG TABLET PO PRN (12:00)
[2021-06-27] MEDS ORDERED: morphine INJ 10 MG/ML 1ML (SYR OR VIAL) IVP PRN ×2 (12:00)
[2021-06-27] MEDS ORDERED: oxyCODONE/APAP 5/325MG (PERCOCET 5) TABLET PO PRN (12:00)
[2021-06-27] MEDS ORDERED: ONDANSETRON 4 MG/2 ML (SDV) Z0FRAN IVP PRN ×2 (12:00→14:15)
[2021-06-27] MEDS ORDERED: LACTATED RINGERS 1,000 ML IV PRN (12:00)
[2021-06-27] MEDS ORDERED: LIDOCAINE/EPI 1%-1:200,000 (XYLOCAINE) 30 ML VIAL ONE (12:53)
[2021-06-27] MEDS ORDERED: HYDROmorphone 2 MG/ML VIAL (DILAUDID) IV ONE (14:15)
--- NOTE | 2021-06-27 14:25 | Anesthesia-General Post-Op ---
General Patient Condition Mental Status/LOC: Same as Preop Cardiovascular: Satisfactory Nausea/Vomiting: Absent Respiratory: Satisfactory Pain: Controlled Complications: Absent Post Op Complications Complications None Follow Up Care/Instructions Patient Instructions None needed. Anesthesia/Patient Condition Patient Condition Patient is doing well, no complaints, stable vital signs, no apparent adverse anesthesia problems. No complications reported per nursing. D/C home per [facility] [place] Criteria: Yes SIMONA VILLANUEVA CRNA Jun 27, 2021 14:25
--- NOTE | 2021-06-27 20:10 | OPERATIVE REPORT ---
DATE OF SERVICE: 06/27/2021 ATTENDING PERSONAL LINES INSURANCE AGENT: Kisha Dudley APRN PREOPERATIVE DIAGNOSIS: Symptomatic epigastric abdominal pain. POSTOPERATIVE DIAGNOSIS: Omental adhesions to the anterior abdominal wall. No hernias. Liver steatosis. PROCEDURE: Diagnostic laparoscopy, lysis of adhesions. SURGEON: Daniel Arroyo MD ROAD ADVISOR: Wander Adams APRN ANESTHESIA: General endotracheal. ESTIMATED BLOOD LOSS: Minimal. FINDINGS: Same as postoperative diagnoses. DISPOSITION: The patient tolerated the procedure well. INDICATIONS: The patient is a 51-year-old female known to us. She has a history of morbid obesity and medical comorbidities related to this and initially underwent a laparoscopic adjustable gastric band and did well in the initial phases; however, slowly did gain weight over time. She then had developed a severe reflux and underwent diagnostic imaging, which did show a slippage of the band and this was also confirmed on EGD. She then had this removed 03/2021. She reports that over the past several months, she has developed significant pain that was initially in the right upper abdominal quadrant; however, has gone more to the epigastric region and also states the left upper abdominal quadrant. Upon examination in the office, she was tender to palpation in these regions; however, there were no hernias palpable. We had proceeded with medical management and pain control; however, her pain continued. She also underwent a CT scan, which did not show any hernias as well as no intraabdominal inflammatory changes. She continued to have significant pain in the epigastric region as well as what she reported as movement towards the left upper abdominal quadrant. She is otherwise eating well and having normal bowel movements. DESCRIPTION OF PROCEDURE: The patient was brought to the operating room, laid supine on the table. After adequate IV pain and sedative medications and general endotracheal intubation, the abdomen was prepped and draped in standard surgical fashion. A 0.5% Marcaine with epinephrine was used to anesthetize overlying skin in the left upper abdominal quadrant and transverse skin incision made using 15 blade. An 0 silk suture was applied to the medial aspect of incision for retraction and a Veress needle inserted with a low opening pressure of 0 mmHg. The abdomen was then insufflated to 15 mmHg pressure. The Veress needle removed and a 5 mm XL trocar placed followed by a 5 mm 45-degree angle laparoscope visualizing the peritoneal cavity. A 4-quadrant abdominal exploration was performed. There was significant liver steatosis identified. There were omental adhesions towards the anterior abdominal wall, more in the epigastric region as well as a right upper abdominal quadrant. There were no hernias identified. The greater curvature of the stomach appeared normal. No intraabdominal inflammatory changes or any abscesses. Under direct visualization, we then proceeded to place a 5 mm port in the mid-abdomen just right of midline. The omental adhesions were taken down using blunt dissection as well as using the Sonicision with visualization of good hemostasis. This was continued until all of the omental adhesions were taken down. No hernias identified. The abdomen was desufflated and the ports removed. The skin incisions were closed using 4-0 Monocryl running subcuticular sutures. Wounds were then cleaned and covered with Dermabond. The patient tolerated the procedure well. We will recommend that she avoid heavy lifting or exertion for the next two weeks and then to slowly incorporate more activity in a stepwise fashion until 6 weeks from the surgery date. We feel that since that she has had the laparoscopic adjustable gastric band removed, she has gained significant amount of weight and was found to have significant liver steatosis, which may also be causing her abdominal pain in any form of regularly scheduled diet and exercise modality would be beneficial in alleviating her symptoms. Job ID: [id number] DocumentID: [id number] Dictated Date: 06/27/2021 14:09:14 Manager Summer Date: 06/27/2021 20:09:52 Dictated By: DANIEL ARROYO MD [facility]
== END 2021-06-27 15:49 ==
LOC: SDC 11:23
PROVIDERS: ATTEND Surgery
DX: K66.0 Peritoneal adhesions (postprocedural) (postinfection) (principal); K76.0 Fatty (change of) liver, not elsewhere classified; D34 Benign neoplasm of thyroid gland; E11.9 Type 2 diabetes mellitus without complications; G47.33 Obstructive sleep apnea (adult) (pediatric); E66.01 Morbid (severe) obesity due to excess calories; F32.A Depression, unspecified; F41.9 Anxiety disorder, unspecified; F17.210 Nicotine dependence, cigarettes, uncomplicated; K21.9 Gastro-esophageal reflux disease without esophagitis; R00.2 Palpitations; Z98.84 Bariatric surgery status; Z79.2 Long term (current) use of antibiotics; Z79.84 Long term (current) use of oral hypoglycemic drugs; Z79.899 Other long term (current) drug therapy; Z90.49 Acquired absence of other specified parts of digestive tract; Z68.43 Body mass index [BMI] 50.0-59.9, adult
CPT/HCPCS: 84703; 87081